=== PATIENT | male | born 1980 | race Caucasian/White ===

== ENCOUNTER 2018-08-12 11:49 | Day surgery (SDC) | payer BC ==
[~2018-08-12] VITALS: Ht 185.4 cm; Wt 97.7 kg
[~2018-08-12 11:49] MED LIST: ALPR.5 PO; Ativan0.5 MG; BENADRYL25 MG PO; Benadryl25 MG; CLARITIN10 MG PO; COPAXONE; COPAXONE40 MG/1 ML SC; IBUP400; LORA10; MONT10T PO; Mobic15 MG PO; VITAMIN B-1000 MCG/1 PO; VITAMIN D32000 UNIT PO
[2018-08-12] MEDS ORDERED: CIME400 PO (12:41)
[2018-08-12] MEDS ORDERED: ACET325 PO (12:41)
--- NOTE | 2018-08-12 16:30 | NUR ---
08/12/18 1630 Autumn Raygoza PT IS ACCOMPANIED BY HIS AT THIS TIME. VSS. PT DENIES NAUSEA AND HAS TOLERATED PO FLUIDS WELL. PT STATES PAIN IS 5/10 AT THE OP SITE. RN ADMINSTERED 2 TABS OF NORCO AT 1549. RN WENT OVER DISCHARGE INSTRUCTIONS WITH PT AND PT'S UNTIL ALL QUESTIONS WERE ANSWERED. CALL LIGHT IN REACH.
== END 2018-08-12 16:59 | disposition home or self-care (01) ==
LOC: ORSCSDS 11:49
PROVIDERS: Orthopaedic Surgery
PROC: 0RNJ4ZZ Release Right Shoulder Joint, Percutaneous Endoscopic Approach (ICD-10-PCS; principal; 2018-08-12 13:15)
PROC: 0LS14ZZ Reposition Right Shoulder Tendon, Percutaneous Endoscopic Approach (ICD-10-PCS; principal; 2018-08-12 13:15)
PROC: 0LQ14ZZ Repair Right Shoulder Tendon, Percutaneous Endoscopic Approach (ICD-10-PCS; principal; 2018-08-12 13:15)
DX: M75.121 Complete rotator cuff tear or rupture of right shoulder, not specified as traumatic (principal); M75.51 Bursitis of right shoulder; M75.21 Bicipital tendinitis, right shoulder; G35 Multiple sclerosis; Z87.891 Personal history of nicotine dependence; Z79.899 Other long term (current) drug therapy
CPT/HCPCS: A9270-GY; C1713; J0171; J0690; J1100; J1885; J2250; J2405; J2704; J2795; J3010

== ENCOUNTER → 2019-08-06 | Outpatient (CLI) | payer BC ==
[~2019-08-06] MED LIST changes: +ACET325 PO; +CIME400 PO
== END | disposition home or self-care (01) ==
LOC: LAB SHORT 09:38 → PLD 09:38
DX: D22.62 Melanocytic nevi of left upper limb, including shoulder (principal)
CPT/HCPCS: 88305

== ENCOUNTER 2020-03-15 12:44 | Day surgery (SDC) | payer BC ==
[~2020-03-15] VITALS: Ht 185.4 cm; Wt 94.0 kg
--- NOTE | 2020-03-15 13:09 | NUR ---
03/15/20 1309 Justine Badillo BLOOD DRAWN AND ANTICOAG ADDED TO SPECIMEN, DELIVERED TO OR AND SPUN.
--- NOTE | 2020-03-15 14:05 | NUR ---
03/15/20 1405 Lazaro Morfin 1 MG EPI ADDED TO EACH OF THE FIRST 3 BAGS OF LR FOR IRRIGATION.
== END 2020-03-15 15:55 | disposition home or self-care (01) ==
LOC: ORSCSDS 12:44
PROVIDERS: Orthopaedic Surgery
PROC: 0SQC4ZZ Repair Right Knee Joint, Percutaneous Endoscopic Approach (ICD-10-PCS; principal; 2020-03-15 14:15)
DX: S83.241A Other tear of medial meniscus, current injury, right knee, initial encounter (principal); M94.261 Chondromalacia, right knee; M25.861 Other specified joint disorders, right knee; G35 Multiple sclerosis; Z79.899 Other long term (current) drug therapy
CPT/HCPCS: C1713; J0171; J0690; J1100; J2250; J2405; J2704; J3010; J7120

== ENCOUNTER 2020-05-06 08:34 | Day surgery (SDC) | payer BC ==
[~2020-05-06] VITALS: Ht 185.4 cm; Wt 95.1 kg
== END 2020-05-06 10:37 | disposition home or self-care (01) ==
LOC: ORSCSDS 08:34
PROVIDERS: Internal Medicine Gastroenterology
PROC: 0DJD8ZZ Inspection of Lower Intestinal Tract, Via Natural or Artificial Opening Endoscopic (ICD-10-PCS; principal; 2020-05-06 09:45)
PROC: 0DB58ZX Excision of Esophagus, Via Natural or Artificial Opening Endoscopic, Diagnostic (ICD-10-PCS; principal; 2020-05-06 09:45)
DX: K20.0 Eosinophilic esophagitis (principal); Z83.71 Family history of colonic polyps; K22.8 Other specified diseases of esophagus; K64.4 Residual hemorrhoidal skin tags; Z79.899 Other long term (current) drug therapy
CPT/HCPCS: 88305; J2250; J2704; J7120

== ENCOUNTER 2020-12-28 07:50 | Day surgery (SDC) | payer BC ==
[~2020-12-28] VITALS: Ht 185.4 cm; Wt 100.6 kg
[2020-12-28] MEDS ORDERED: CLAR500 PO (08:42)
[2020-12-28] MEDS ORDERED: PRED20 PO (08:42)
== END 2020-12-28 13:35 | disposition home or self-care (01) ==
LOC: ORSCSDS 07:50
PROVIDERS: Otolaryngology
PROC: 099V8ZZ Drainage of Left Ethmoid Sinus, Via Natural or Artificial Opening Endoscopic (ICD-10-PCS; principal; 2020-12-28 09:00)
PROC: 099S8ZZ Drainage of Right Frontal Sinus, Via Natural or Artificial Opening Endoscopic (ICD-10-PCS; principal; 2020-12-28 09:00)
PROC: 099U8ZZ Drainage of Right Ethmoid Sinus, Via Natural or Artificial Opening Endoscopic (ICD-10-PCS; principal; 2020-12-28 09:00)
PROC: 099Q8ZZ Drainage of Right Maxillary Sinus, Via Natural or Artificial Opening Endoscopic (ICD-10-PCS; principal; 2020-12-28 09:00)
PROC: 8E09XBZ Computer Assisted Procedure of Head and Neck Region (ICD-10-PCS; principal; 2020-12-28 09:00)
PROC: 09CX8ZZ Extirpation of Matter from Left Sphenoid Sinus, Via Natural or Artificial Opening Endoscopic (ICD-10-PCS; principal; 2020-12-28 09:00)
PROC: 09SM0ZZ Reposition Nasal Septum, Open Approach (ICD-10-PCS; principal; 2020-12-28 09:00)
PROC: 099T8ZZ Drainage of Left Frontal Sinus, Via Natural or Artificial Opening Endoscopic (ICD-10-PCS; principal; 2020-12-28 09:00)
PROC: 099R8ZZ Drainage of Left Maxillary Sinus, Via Natural or Artificial Opening Endoscopic (ICD-10-PCS; principal; 2020-12-28 09:00)
DX: J32.8 Other chronic sinusitis (principal); J34.2 Deviated nasal septum; G35 Multiple sclerosis; Z79.899 Other long term (current) drug therapy; Z87.891 Personal history of nicotine dependence
CPT/HCPCS: A9270; C2625; J0171; J1100; J2250; J2405; J2704; J3010; J7120